=== PATIENT | male | born 1990 | race Caucasian/White ===

== ENCOUNTER → 2021-05-10 11:54 | Outpatient (BNVA) | payer SELFPAY | PROVIDERS: PCP Nurse Practitioner Family; Referring Provider Orthopaedic Surgery; Visit Provider Orthopaedic Surgery | DX: Z01.812 Encounter for preprocedural laboratory examination (principal); Z20.822 Contact with and (suspected) exposure to COVID-19; S43.101A Unspecified dislocation of right acromioclavicular joint, initial encounter; X58.XXXA Exposure to other specified factors, initial encounter | CPT/HCPCS: 87635 ==

== ENCOUNTER 2021-05-12 11:32 | Day surgery (SDC) | payer SELFPAY ==
[2021-05-11 14:43] VITALS: BMI 23.8
[2021-05-12] VITALS (9 sets, daily range): BP systolic 121–167; BP diastolic 54–99; PULSE 57–86; RESP 12–21; TEMP 36.3–36.6; O2SAT 97–100
[2021-05-12] MEDS: sodium chloride 0.9% 1,000 ML 30 ML IV (12:30)
--- NOTE | 2021-05-12 12:46 | ANES.PREANE2 ---
Pre-Anesthetic Assessment Pre-Anesthetic Assessment: Height/Weight: Height 1.88 m Weight 84.368 kg Temp Pulse Resp BP Pulse Ox 97.6 F 86 16 124/74 100 05/12/21 11:55 05/12/21 11:55 05/12/21 11:55 05/12/21 11:55 05/12/21 11:55 Preop Diagnosis: Right acromioclavicular joint separation Proposed Procedure: Operation Date: 05/12/21 13:00 Proposed Procedures p AC Separation Repair (Shoulder) 41822 S43.121A(Right) - Neto Plascencia MD Familial anesthetic complications: none Was Beta Arsh taken within 24 hours: N/A Was Clonidine taken within 24 hours: N/A Last intake: Intake Last Liquid Date 05/12/21 Last Liquid Time 07:00 Last Solid Date 05/11/21 Last Solid Time 23:15 Social: Social History: Tobacco and No alcohol Exam: Pre-Anes Outpt Exam: alert, oriented x 3, clear to auscultation bilaterally and regular rate & rhythm Airway: Cervical ROM: WNL MP: 2 Dentition: Chipped Anesthetic Plan: Anesthesia: General Other: patient declines regional block Risk of > 500 ml blood loss (7ml/kg in children): No Meds/Allergies Current Medications: Current Medications Generic Name Dose Route Start Last Admin Trade Name Freq PRN Reason Stop Dose Admin Sodium Chloride 1,000 mls @ 30 ml s/hr 05/12/21 11:45 05/12/21 12:30 Sodium Chloride 0.9% IV 05/13/21 11:44 30 mls/hr .Q24H ETHAN Administration Data Anesthesia Cardiac Studies: No Data to Display
--- NOTE | 2021-05-12 13:38 | W.PM.OPSUD ---
Surgery/Procedure H&P Update DATE OF PROCEDURE: May 12, 2021 DATE H&P PERFORMED: 05/10/21 PREOP DIAGNOSIS: Right acromioclavicular joint separation PLANNED PROCEDURE: Operation Date: 05/12/21 13:00 Proposed Procedures p AC Separation Repair (Shoulder) [id number] S43.121A(Right) - Neto Plascencia MD
--- NOTE | 2021-05-12 15:17 | PM.OP ---
Operative Report Date of procedure: May 12, 2021 Pre-op Diagnosis: Right acromioclavicular joint separation Post-op diagnosis: same Post-op Findings: Same Implants: Lockdown 13 cm implant, 28 mm screw and washer Pathology: none sent Surgeon: Neto Plascencia Anesthesia: General Estimated blood loss (mL): 20 Findings: The patient had a right acromioclavicular joint separation with approximately 5 cm of dorsal elevation of the distal clavicle relative to the acromion, type V Condition: stable Disposition: PACU Procedure: The patient was taken to the operating room and given a general in if he was positioned in the beachchair position with his right shoulder prepped and draped in usual fashion. He is given 2 g of Ancef. A timeout was performed. A 5 cm long incision was made beginning from a point approximately 2 cm medial to the distal clavicle extending distally just lateral to the acromion. The periosteum over the clavicle was elevated laterally to the level of the acromioclavicular joint. The deltoid was split in line with its fibers until access to the coracoid. An oscillating saw was used to remove 8 mm of distal clavicle. The passing guide was passed around the coracoid medial to lateral and a measuring device passed. It was passed underneath the clavicle with a hemostat and over the top. A 13cm implant was chosen. The measuring device was used to pass the final implant around the coracoid where it was locked in place and then beneath and over the top of the clavicle. Elevating pressure was placed across the elbow in a position for screw fixation determined. Anterior to posterior lateral to medial directed tunnel was made and measured at 24 mm. A 28 mm implant was chosen. Screw was passed through the loop and into to the drill hole and the screw secured with elevation applied in the humerus across the elbow. The deltoid and dorsal periosteum were reapproximated with 0 Vicryl. Subcutaneous tissues were closed with running 2-0 Stratafix and the skin was closed with a running4-0 Stratafix. The incision was covered with Xeroflo 4 x 4's and a Tegaderm dressing. He was placed in a sling and taken to recovery room in stable condition.
[2021-05-12] MEDS: fentaNYL 50 mcg/mL INJ 2mL IVP ×2 (15:35→15:40)
[2021-05-12] MEDS: oxyCODONE-APAP 5-325 mg Tablet 1 TAB PO (15:57)
--- NOTE | 2021-05-12 21:02 | ANE.PACU2 ---
Inpatient post-anesthesia follow up: Airway intact: Yes Vital signs: Temperature 98 F Pulse Rate 57 Respiratory Rate 16 Blood Pressure 167/54 Pulse Oximetry 99 Oxygen Delivery Me thod Room Air Oxygen Flow Rate Fraction of Inspir ed Oxygen Hydration adequate: Yes Nausea and vomiting: No Pain level: 2 Mental status: Baseline
== END 2021-05-12 16:35 | disposition home or self-care (01) ==
PROVIDERS: PCP Nurse Practitioner Family; Visit Provider Orthopaedic Surgery
PROC: (CPT 23550; principal; 2021-05-12 12:50)
DX: S43.101A Unspecified dislocation of right acromioclavicular joint, initial encounter (principal); W23.0XXA Caught, crushed, jammed, or pinched between moving objects, initial encounter
CPT/HCPCS: 23550; C1713; J0690; J1100; J1885; J2405; J2704; J2710; J2795; J3010; J3490; J7030

== ENCOUNTER 2022-11-12 10:43 | Emergency (ER) | payer SELFPAY ==
[2022-11-12 10:48] VITALS: BP 145/83; PULSE 97; RESP 14; TEMP 36.6; O2SAT 98
[2022-11-12] MEDS: tetracaine 0.5% Op Soln 4 mL Btl 2 DROP EYE-BOTH (11:40)
[2022-11-12] MEDS: fluorescein 1 mg Strip EYE-BOTH (11:40)
--- NOTE | 2022-11-12 11:54 | W.ED.EYEPROB ---
HPI - Eye Problem General: Chief complaint: Eye Problems Stated complaint: states metal in eye Time Seen by Provider: 11/12/22 11:12 Source: patient Mode of arrival: ambulatory Limitations: no limitations History of Present Illness: 32-year-old male presents to the ER today for bilateral eye pain for the last 4 days. Patient reports he was grinding on without any protection and thinks he might of gotten some metal in both eyes. He reports he gave it some time however the irritation is continued. He reports clear discharge in both eyes. He is unable to see any metal specks. He reports this happened before and is usually taking care of itself. He denies any blurry vision other than just from irritation. He has not tried rinsing out his eyes at this time. Review of Systems General: Reports: 10 or more systems reviewed and unremarkable except in HPI and below Physical Exam Const: COMMON NORMALS: no acute distress, patient oriented x3, no limitations, healthy appearing, alert and well nourished HENMT: COMMON NORMALS: normocephalic, atraumatic, external ears normal, Normal external nose present and Normal nasal mucous membranes and turbinates present HEAD & SCALP: normocephalic and atraumatic NOSE: Normal external nose present and Normal nasal mucous membranes and turbinates present EXTERNAL EAR: Yes external ears normal Eye: COMMON NORMALS: EOMs intact bilaterally and conjunctivae normal GENERAL EYE: normal light reflex CONJUNCTIVA: Yes conjunctivae normal DIRECT OPHTHALMOSCOPY: Yes normal light reflex OTHER: Tetracaine was used to numb the eyes and fluorescein applied in both eyes. There noted to be abrasions to both eyes. The right eye has abrasions at the 9 o'clock position and the 6 o'clock position over the iris. The left eye has what appears to be abrasions versus very very tiny foreign bodies at the 3:00 and 5:00 positions. Resp: COMMON NORMALS: normal respiratory effort EFFORT & INSPECTION: Yes able to speak in complete sentences Cardio: COMMON NORMALS: regular rate and regular rhythm RATE: regular rate RHYTHM: regular rhythm Extremity: COMMON NORMALS: normal to inspection and full ROM Neuro: COMMON NORMALS: patient oriented x3 SENSORIUM/ORIENTATION: Yes alert Psych: COMMON NORMALS: mental status grossly normal, Normal thought process present and cooperative THOUGHT PROCESS: Normal thought process present Skin: COMMON NORMALS: no rashes or lesions noted and no wounds GENERAL SKIN EXAM: no rashes or lesions noted Course ED course: Patient presents for possible foreign bodies in both eyes after using a pulp grinder and blender on . Upon initial evaluation, no obvious foreign bodies are noted. We did apply tetracaine drops and fluorescein stain to both eyes. There appears to be some abrasions however no obvious foreign bodies. Vital Signs: Vital signs: Vital Signs Temperature 97.8 F 11/12/22 10:48 Pulse Rate 97 11/12/22 10:48 Respiratory Rate 14 11/12/22 10:48 Blood Pressure 145/83 11/12/22 10:48 Pulse Oximetry 98 11/12/22 10:48 Oxygen Delivery Me thod 11/12/22 10:48 MDM - Eye Problem Medical Decision Making After fluorescein stain, there appears to be abrasions and bilateral eyes. There is possible very small foreign body in the left eye but nothing that we would be able to remove here. Discussed with patient it is important to flush his eyes frequently for the next several days. Recommend 3 times a day saline flushes. We will go ahead and treat with gentamicin drops. Patient should use them every hour until symptoms start getting better and then every 4 hours. If symptoms are not better within 48 hours or things are worsening, follow-up with an director of special services or job printer. Recommended anti-inflammatories for pain. Cool compresses to help with symptoms. Wear safety goggles when using a pulp grinder and blender. Return to the ER with any new or worsening symptoms. Patient verbalized understanding and was in agreement with the treatment plan. Critical Care Time Critical Care Time: Critical Care Time: No Discharge Plan Discharge Patient Disposition: Home Clinical Impression: Corneal abrasion of both eyes Qualifiers: Encounter type: initial encounter Qualified Code(s): S05.01XA - Injury of conjunctiva and corneal abrasion without foreign body, right eye, initial encounter Condition: Stable Prescriptions: New gentamicin 0.3 % drops 1 drp ophthalmic (eye) Q4H Qty: 5 0RF Rx Instructions: 1 drop in each eye every hour until improved and then every 4 hours x 5 days No Action ibuprofen 200 mg Tablet 800 mg PO Q6H PRN (Reason: Pain) Discharge Orders: Discharge ED (Routine); Ordered 11/12/22 Ordered By: Jaimee Jaimes Discharge Diet: Usual diet Discharge Activity: Resume usual activity Patient Instructions: Opioid Safety, Pain Management Activity Restrictions/Additional Instructions: Use eyedrops as prescribed. Flush eyes with saline eyewash 2-3 times daily. Follow-up with director of special services if no improvement in 48 hours. Recommend wearing safety goggles when working with metal or when grinding. Return to the ER with new or worsening symptoms. Coding Level of Care Code ED Flame Channeler for Micah Orlando
--- NOTE | 2022-11-14 16:12 | DCPLANNER ---
TCM called patient due to no primary care physician - patient declines at this time
== END 2022-11-12 11:51 | disposition home or self-care (01) ==
PROVIDERS: Emergency Provider Physician Assistant
DX: S05.02XA Injury of conjunctiva and corneal abrasion without foreign body, left eye, initial encounter (principal); S05.01XA Injury of conjunctiva and corneal abrasion without foreign body, right eye, initial encounter; X58.XXXA Exposure to other specified factors, initial encounter
CPT/HCPCS: 99283

== ENCOUNTER 2023-01-03 07:42 | Emergency (ER) | payer SELFPAY ==
[2023-01-03 07:43] VITALS: BP 132/98; PULSE 71; RESP 15; O2SAT 96; BMI 24.3
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
--- NOTE | 2023-01-03 08:00 | XR_ITS ---
WS: [id number] Right knee, AP and lateral views, 01/03/2023 Clinical Data: injury Comparison: None. Findings: No fractures or dislocations are seen. The joint spaces are normal. The patella is intact. The soft t issues are unremarkable. XR/XR knee RT 1-2V [id number] Impression: Negative right knee.
--- NOTE | 2023-01-03 08:41 | PC.NURSE ---
PT refusing an IV or medications at this time, physician notified, will have charge nurse reassess pt wishes and return.
[2023-01-03 08:51] VITALS: BP 149/83; PULSE 71; O2SAT 99
[2023-01-03 08:59] VITALS: RESP 16; O2SAT 99
[2023-01-03] MEDS: fentaNYL 50 mcg/mL INJ 2mL IVP ×2 (08:59→10:13)
[2023-01-03 09:00] LABS: Basophils # 0.1 10^3/uL (0.0-0.1); Basophils % 0.4 %; Eosinophils # 0.1 10^3/uL (0.0-0.8); Eosinophils % 0.4 %; Hematocrit 44.4 % (42.0-52.0); Hemoglobin 15.5 g/dL (11.7-16.6); Lymphocytes # 1.2 10^3/uL (0.8-4.8); Lymphocytes % 7.1 %; Mean Corpuscular HGB Conc 34.9 g/dL (30.0-36.0); Mean Corpuscular Hemoglobin 31.1 pg (28.0-34.0); Mean Platelet Volume 9.3 fL (7.4-10.4); Monocytes # 0.7 10^3/uL (0.2-0.9); Neutrophils # 14.73 10^3/uL (1.8-7.7); Neutrophils % 87.5 %; Nucleated Red Blood Cells % 0 %; Platelet Count 289 10^3/cmm (130-400); Red Blood Count 4.99 10^6/uL (4.1-5.3); Red Cell Distribution Width 13.7 % (12.1-15.1); White Blood Count 16.8 10^3/uL (4.0-10.0)
[2023-01-03] MEDS: sodium chloride 0.9% 500 ML 999 ML IV (09:00)
[2023-01-03] MEDS: ondansetron 2 mg/ML SDV 2 mL 4 MG IVP (09:00)
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
[2023-01-03 09:22] LABS: Alanine Aminotransferase 34 U/L (0-41); Albumin Level 4.3 g/dL (3.5-5.2); Alkaline Phosphatase 99 U/L (40-130); Anion Gap 11.9 (5-19); Aspartate Amino Transferase 34 U/L (0-40); Blood Urea Nitrogen 7 mg/dL (6-20); Calcium 9.6 mg/dL (8.5-10.5); Carbon Dioxide 28 mmol/L (22-29); Chloride 101 mmol/L (98-107); Globulin 3.2 g/dL (1.3-4.6); Glomerular Filtration Rate 97.8 mL/min (90-130); Glucose 78 mg/dL (65-115); Lactate (Lactic Acid level) 1.6 mmol/L (0.5-2.2); Osmolality Calculated 281 mOsm/kg (285-295); Potassium 3.9 mmol/L (3.5-5.1); Sodium 137 mmol/L (136-145); Total Bilirubin 0.4 mg/dL (0.15-1.2); Total Protein 7.5 g/dL (6.6-8.7)
[2023-01-03 10:00] VITALS: BP 139/88; PULSE 81; RESP 16; O2SAT 97
[2023-01-03 10:13] VITALS: RESP 14; O2SAT 98
--- NOTE | 2023-01-03 10:48 | PC.NURSE ---
pt being transferred to [facility], report called.
--- NOTE | 2023-01-05 15:00 | DCPLANNER ---
business banking relationship manager called patient due to no primary care physician - no answer at this time.
== END 2023-01-03 11:43 ==
PROVIDERS: Emergency Provider Emergency Medicine
DX: S09.8XXA Other specified injuries of head, initial encounter (principal); S00.83XA Contusion of other part of head, initial encounter; S01.81XA Laceration without foreign body of other part of head, initial encounter; S01.511A Laceration without foreign body of lip, initial encounter; S32.451A Displaced transverse fracture of right acetabulum, initial encounter for closed fracture; V89.2XXA Person injured in unspecified motor-vehicle accident, traffic, initial encounter
CPT/HCPCS: 70450; 70486; 71046; 72125; 73502; 73560; 73700; 80053; 83605; 85025; 86850; 86900; 96361; 96374; 96375; 96376; 99285; J2405; J3010; J7030